=== PATIENT | female | born 1940 | race Caucasian/White ===

== ENCOUNTER 2016-09-05 09:33 | Day surgery (SDC) | payer MEDICARE ==
[~2016-09-05] VITALS: Ht 162.6 cm; Wt 62.0 kg
[~2016-09-05 09:33] MED LIST: ALBU18HF INH; ASPI-973 PO; ATEN100T PO; ESTR42.52 VG; FLUT9.9S NS; HYDR25TA4 PO; Lactated Ringer's 1,000 ML IV ONE; PANT40TA2 PO; SERT20OR6 PO; TRAM50TA2 PO; VIT1TABL83 PO
[2016-09-05] MEDS ORDERED: Propofol 10,000 mCg/mL 20 mL Inj ONE (09:34)
[2016-09-05 09:50] VITALS: BP 149/77; PULSE 65; RESP 14; O2SAT 99
[2016-09-05] MEDS ORDERED: Lactated Ringer's 1,000 ML IV SCH (10:13)
[2016-09-05] MEDS ORDERED: MetoCLOpramide 5 mg/mL 2 mL Inj IVPUSH PRN (10:15)
[2016-09-05] MEDS ORDERED: Ondansetron 2 mg/mL 2 mL Inj IVPUSH PRN (10:15)
[2016-09-05 10:45] VITALS: BP 123/66; PULSE 67; RESP 15; O2SAT 97
[2016-09-05 10:50] VITALS: BP 125/70; PULSE 67; RESP 15; O2SAT 97
[2016-09-05 11:01] VITALS: BP 152/72; PULSE 57; RESP 15; O2SAT 97
--- NOTE | 2016-09-05 16:40 | PCM.ANEP1 ---
Post Anesthesia PACU Phase 1 Assessment Vital Signs Vital Signs Date Time Temp Pulse Resp B/P Pulse Ox O2 Delivery O2 Flow Rate FiO2 09/05/16 11:01 57 15 152/72 97 Room Air 09/05/16 10:50 67 15 125/70 97 Room Air 09/05/16 10:45 67 15 123/66 97 Room Air 09/05/16 09:50 65 14 149/77 99 Room Air Anesthetic Administered: MAC Level of Alertness: Awake, talking SARMIENTO's with Equal Strength: Yes Pain: No Nausea or Vomiting: No CV Function & Hydration Stable: Yes Airway Device: N/A Oxygen Delivery: Room Air Lungs: Clear to Auscultation, Normal Air Movement Dermatome Level: T2 ([place]) PACU Phase 2 Assessment Complications: No Follow up Care: N/A Patient Instructions Provided: N/A John Alvares MD Sep 05, 2016 16:40
--- NOTE | 2016-09-05 16:40 | PCM.HPANE ---
Patient Data Surgeon Admitting Provider: Attending Provider:Austin Villegas MD Primary Care Physician:Jason Alberts MD Other Provider: Reason for Visit Barretts Esophagus With Dysplasia Ht/WT & BMI Height (Feet): 5 Height (Inches): 4 Weight (Kilograms): 62 Body Mass Index 23.00 Allergies Coded Allergies: morphine (Verified Allergy, Mild, itching, 09/02/16) codeine (Verified Allergy, Unknown, 09/02/16) Past Anesthesia History Anesthesia History: Denies:: Abnormal Airway, Anesthesia Reactions, Difficult Intubation, Fam Anesthesia Reaction, Fam Malignant Hypertherm, Malignant Hyperthermia Diabetes History Hx Diabetes?: No MRSA MRSA: No Medications Blood Thinner: Aspirin Last Dose Blood Thinner: Sep 04, 2016 Home Meds Incl Beta Adriane: Yes Date Beta Adriane Taken: Sep 04, 2016 Time Beta Adriane Taken: 0900 Reported Medications Vit B Comp/C/FA/Iron/Vit E (Vitamin B Complex Tablet)1 Each Tablet1 Each PO 06/01/15 Albuterol Sulfate (Ventolin HFA Inhaler)200 Puff/18 Gm Inhaler1 Puff INH Q4 PRN For Wheezing #1 INHALER Ref 0 06/01/15 Tramadol 50 Mg Qmoxwi81 Mg PO Q4H PRN For Pain Ref 0 06/01/15 Sertraline HCl (Sertraline)20 Mg/1 Ml Oral.mbhi599 Mg PO DAILY #1 BOTTLE Ref 0 06/01/[address] (Protonix)40 Mg Yjjzss56 Mg PO DAILY Ref 0 06/01/15 Hydrochlorothiazide 25 Mg Bxhlkh28 Mg PO DAILY 30 Days Ref 0 06/01/15 Fluticasone Propionate (Flonase Allergy Relief)50 Mcg/Actuation [place].susp9.9 Ml NS 06/01/15 Atenolol 100 Mg Lkmfdz205 Mg PO DAILY Ref 0 06/01/15 Aspirin 81 Mg Ugcsiq60 Mg PO DAILY Ref 0 06/01/15 Discontinued Reported Medications Estradiol (Estrace)42.5 Gm Cream.appl1 G VG UD PRN UNKNOWN #1 TUBE Ref 0 06/01/15 Vitamin E Mixed (Vitamin E)400 Unit Iqxqhg866 Unit PO 06/01/15 Cholecalciferol (Vitamin D3) (Vitamin D3)1,000 Unit Tab.chew1,000 Unit PO 06/01/15 Guaifenesin (Mucinex)600 Mg Tablet.er600 Mg PO 06/01/15 Ca Carbonate/Vitamin D3/Vit K (Calcium + D Soft Chewable Tab)1 Each Tab.chew1 Each PO 06/01/15 History History of ENT Problems?: No HEENT History: Denies:: Abnormal Airway Difficult Intubation Dysphagia Hearing Problem Denture Type: None Teeth Condition: Missing Teeth Hx of Heart Problems?: No Cardiovascular History: Positive for:: Hypertension Denies:: AICD Abdominal Aortic Aneurism Atrial Fibrillation Cardiac Surgery Chest Pain Congestive Heart Failure Coronary Artery Disease Edema Heart Murmur Irregular Heartbeat Pacemaker Peripheral Vascular Rheumatic Fever Thrombophlebitis Valvular Heart Disease Hx of Respiratory Problem?: No Respiratory History: Positive for:: Asthma (ALLERGY EXPOSURE) Denies:: COPD Chest Surgery Cough Dyspnea Emphysema Hemoptysis Oxygen Administration Pneumonia Pulmonary Embolism Tuberculosis Use of C-PAP Machine Use of Inhalers / NEBS Hx Neurologic Problems?: No Neurological History: Denies:: Alzheimer's Disease CVA Dementia Dizziness Headaches Multiple Sclerosis Parkinson's Disease Peripheral Neuropathy Seizures TIA Hx of GI Problems?: Yes Gastrointestinal History: Denies:: Cirrhosis Diverticulitis Gall Bladder Disease Gastroesphageal Reflux Gastrointestinal Bleeding Heartburn Hepatitis Hiatal Hernia Liver Disease Rectal Bleeding Hx of Problems?: No Genitourinary History: Denies:: HX of Hemodialysis Kidney Stones Urinary Tract Infection HX of Peritoneal Dialysis: No Female Hx: Denies:: Currently Endometriosis Pelvic Inflammatory Problems with Breasts? Skin History: Denies:: History Skin Disorders? Pressure Ulcers Hx Musculoskeletal Problems?: No Musculoskeletal History: Denies:: Back Injury Degenerative Joint Fibromyalgia Joint Replacement Musculoskeletal Trauma Myasthenia Gravis Osteoarthritis Rheumatoid Arthritis Systemic Lupus Hx of Psycho/Social Problems?: No Psycho Social History: Positive for:: Anxiety Hx Depression Denies:: Bipolar Disorder Suicide Attempt Hx Surgeries?: Yes (HYST, LUMBAR LAMI X2, T&A) Hx Any Other Health Problems?: Yes Hx Diabetes: No Hx Alcohol Use: Yes (3-4/MONTH) Smoking Status: Smoker Current Status UNK Stop/Bang Treated for Sleep Apnea?: No S-Snoring: Do You Snore Loudly: Yes T-Tired: feel tired, fatigued: No O-Obsered: Observed not breath: No P-Blood Pressure: treated: Yes B- Body Mass Index > 35 kg/m2: No A- Age over 50: Yes N- Neck Large Circumference: No G- Gender Male: No MAGNOLIA Total Score: 3 Risk Assessment Category Category 1A: Patient has history of documented sleep apnea, and HAS NOT received any narcotic, sedative or anesthesia administration during this stay. Category 1B: Patient has history of documented sleep apnea, and HAS received any narcotic , sedative or anesthesia administration during this stay Category 2: Patient has SUSPECTED Obstructive Sleep Apnea, and HAS received any narcotic , sedative or anesthesia administration during this stay. Category 3: Patient has SUSPECTED Obstructive Sleep Apnea and HAS NOT received narcotic, sedative or anesthesia administration during this stay. Category 4: Outpatient in Procedural Areas with known sleep apnea or who screen positive for High Risk via the STOP/BANG questionnaire. Exam Exam Vital Signs Vital Signs Date Time Temp Pulse Resp B/P Pulse Ox O2 Delivery O2 Flow Rate FiO2 09/05/16 09:50 65 14 149/77 99 Room Air General Appearance: Alert, Oriented X3, Cooperative, No Acute Distress HEENT/AIRWAY: MP 2, Neck Movement (FROM), Mouth Opening (3 FBMO) Lungs: Clear to Auscultation, Normal Air Movement Heart: Exam Unremarkable, Regular Rate/Rhythm, No Murmurs/Rubs/Gallops Plan Impression Patient chart reviewed, patient interviewed and anesthestic plan with risks, benefits, and alternatives discussed, and informed consent obtained. NPO per Anesth. Guidelines: Yes ASA Physical Status: ASA2 Mod Systemic Disease Anesthetic Plan: GA, MAC Bene/Risks/Altern/Consents: Yes HP Complete Prior to Induction: Yes John Alvares MD Sep 05, 2016 10:13
--- NOTE | 2016-09-05 20:28 | ENDO ---
[address] [address] ENDOSCOPY PROCEDURE PATIENT: IKER FUENTES : 1940 MR#: [id number] ADMIT: 09/05/2016 JOB ID: [id number] DATE OF SERVICE: 09/05/2016 PRIMARY PROVIDER: Jason Alberts MD PROCEDURE: Esophagogastroduodenoscopy with biopsies. INDICATIONS: A 76-year-old female with a history of fundic gland polyps and reflux. At biopsies last year, she had a focus of specialized intestinal metaplasia. Repeat EGD is pursued as a consequence of the histology found last time. EQUIPMENT: GIF H 180 J. SEDATION: Monitored anesthesia as provided by Dr. John Alvares. COMPLICATIONS: None identified. PROCEDURE INFORMATION: After the risks and benefits were explained, written and verbal informed consent was obtained. The patient was brought into the endoscopy suite and placed into the left lateral decubitus position. Sedation was achieved as above. The scope was introduced into the mouth through the bite block and advanced to the duodenum. The scope was slowly withdrawn to carefully examine the mucosa for any defects or lesions. Retroflexed views were accomplished in the stomach, the stomach was decompressed and the scope removed from the patient who tolerated the procedure well. FINDINGS: 1. Duodenum: The first portion of the duodenum appeared visually normal. I did not try to get around the sharply angulated corner into D2 this time. 2. Stomach: The patient had scattered benign small and medium-sized polyps. A couple of these were again sampled for histopathologic analysis. No sinister-looking lesions. Retroflexed views were unremarkable. The pyloric channel was open and no ulcers or mass lesions appreciated throughout. 3. Esophagus: The squamocolumnar junction generally correlated with the top of the gastric folds. The GEJ was at about 37 cm from the incisors. I did not see any evidence of a Schatzki's ring. There was a subtle sliding hiatal hernia. No acute erosive inflammation apparent. If there was Montes De Oca's present, there may have been two foci of maybe 1 mm extension of the squamocolumnar junction up above the level of the GEJ. One of these was easy to target, and we did so for histopathologic analysis. Otherwise, the esophagus appeared fairly unremarkable. ENDOSCOPIC DIAGNOSES: 1. Hiatal hernia. 2. 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 3. Gastric polyps. RECOMMENDATIONS: 1. Await histopathology. 2. Continue anti-reflux therapy. 3. If no Montes De Oca's is identified histologically, then I do not believe surveillance is required in this patient's case.
--- NOTE | 2016-09-07 16:09 | PATH ---
SURGICAL PATHOLOGY Attending Physician:Ferdinand Denise CASE STATUS: Signed Out PATIENT NAME: IKER FUENTES PID: [id number] : 1940 DATE COLLECTED:09/05/2016 16:08 SPECIMEN: 1: Stomach, Polyp, Biopsy 2: Esophagus, Biopsy CLINICAL HISTORY: 1. GASTRIC POLYP BXS 2. GEJ FINAL DIAGNOSIS: 1. Gastric Polyp, Biopsy: Portions of fundic gland polyp. Negative for dysplasia and malignancy. 2. Gastroesophageal Junction, Biopsy: Squamocolumnar junctional mucosa with no diagnostic abnormality. Scant squamous mucosa is present for evaluation. Negative for intestinal metaplasia. Negative for dysplasia and malignancy. ICD10: K31.7 GROSS DESCRIPTION: 1. Received in formalin, labeled with the patient's name and "gastric polyps" are three fragments of katz soft tissue ranging in size from 0.1 x 0.1 x 0.1 cm to 0.2 x 0.2 x 0.2 cm. All fragments are totally submitted in cassette 1A. 2. Received in formalin, labeled with the patient's name and "GEJ" is one fragment of katz soft tissue measuring 0.1 x 0.1 x 0.1 cm. The fragment is totally submitted in cassette 2A. ([id number]) ICD-9 CODES: CPT CODES: 1: 69837 2: 46021 Electronically Signed Out Stephany Boss MD Merged With [facility]ology [facility] [address], [place] [address] Technical component performed at [facility], [address] [place] [address] Ave[address], [place], [address]
== END 2016-09-05 23:59 | disposition home or self-care (01) ==
LOC: END 09:33
PROVIDERS: ATTEND Internal Medicine Gastroenterology
DX: K31.7 Polyp of stomach and duodenum (principal); K44.9 Diaphragmatic hernia without obstruction or gangrene; K22.70 Barrett's esophagus without dysplasia; I10 Essential (primary) hypertension; E87.1 Hypo-osmolality and hyponatremia; M54.16 Radiculopathy, lumbar region; F33.41 Major depressive disorder, recurrent, in partial remission; K21.9 Gastro-esophageal reflux disease without esophagitis; J45.909 Unspecified asthma, uncomplicated; K58.9 Irritable bowel syndrome, unspecified; Z79.51 Long term (current) use of inhaled steroids; Z79.82 Long term (current) use of aspirin
CPT/HCPCS: 43239; J7120